=== PATIENT | male | born 1995 | race Caucasian/White ===

== ENCOUNTER 2023-06-25 07:30 | Emergency (ER) | payer MEDICAID ==
[~2023-06-25] VITALS: Ht 190.5 cm; Wt 79.4 kg
[2023-06-25 07:49] VITALS: BP 112/68; TEMP 98.7; O2SAT 98
== END 2023-06-25 07:48 | disposition home or self-care (01) ==
LOC: ER 07:34
DX: J06.9 Acute upper respiratory infection, unspecified (principal)